=== PATIENT | male | born 1935 | race Caucasian/White ===

== ENCOUNTER 2021-01-27 11:24 | Inpatient (IN) | payer BC, OTHER, SELFPAY ==
[~2021-01-27] VITALS: Ht 188 cm; Wt 77.1 kg
[2021-01-28] VITALS (7 sets, daily range): BP systolic 99–157
[2021-01-28] MEDS ORDERED: DILT30TA36 IVP (00:23)
[2021-01-28] MEDS ORDERED: HYDR-3917 PO (00:23)
[2021-01-28] MEDS ORDERED: NALO0.4V2 IVP (00:23)
[2021-01-28] MEDS ORDERED: ACET325T PO (00:23)
[2021-01-28] MEDS ORDERED: ALPR0.255 PO ×2 (00:23→01:14)
[2021-01-28] MEDS ORDERED: IPRA3AMP9 INH ×2 (00:23→01:14)
[2021-01-28] MEDS ORDERED: DIPH-934 PO (01:14)
[2021-01-28] MEDS ORDERED: ONDA4AMP IVP (01:14)
[2021-01-28] MEDS ORDERED: BISA5TAB10 PO (01:14)
[2021-01-28] MEDS ORDERED: NITSL SL (01:14)
[2021-01-28] MEDS ORDERED: MOM PO (01:14)
[2021-01-28] MEDS ORDERED: ENAL10TA19 PO (01:14)
[2021-01-28] MEDS ORDERED: OXYM30MI NS (01:14)
[2021-01-28] MEDS ORDERED: DOXA4TAB2 PO (01:14)
[2021-01-28] MEDS ORDERED: DILT240C91 PO (01:14)
[2021-01-28] MEDS ORDERED: LABE25SY IVP (01:14)
[2021-01-28] MEDS ORDERED: MORP10SO IVP (01:14)
[2021-01-28] MEDS ORDERED: FINA5TAB3 PO (01:14)
[2021-01-28] MEDS ORDERED: ASPI-858 PO (01:14)
[2021-01-28] MEDS ORDERED: AMIO200T66 PO (01:14)
[2021-01-28] MEDS ORDERED: LEVO88TA2 PO (01:14)
[2021-01-28] MEDS ORDERED: LACT10SO7 PO (01:14)
[2021-01-28] MEDS ORDERED: ALLO100T PO (01:14)
[2021-01-28] MEDS ORDERED: ALPRAZolam 0.25 MG TABLET PO PRN (01:15)
[2021-01-28] MEDS ORDERED: IPRATROPIUM/ALBUTEROL SULFATE 3 ML AMPUL.NEB (DUONEB) INH PRN (01:15)
[2021-01-28] MEDS ORDERED: HYDROcodone/ACETAMIN 5-325 MG TAB (NORCO/ VICODIN) PO PRN (01:15)
[2021-01-28] MEDS ORDERED: NALOXONE HCL 0.4 MG/ML AMP (NARCAN) IVP PRN (01:15)
[2021-01-28] MEDS ORDERED: MILK OF MAGNESIA 30 ML UDC PO PRN (01:15)
[2021-01-28] MEDS ORDERED: NITROGLYCERIN 0.4 MG TAB.SUBL SL PRN (01:15)
[2021-01-28] MEDS: IPRATROPIUM/ALBUTEROL SULFATE 3 ML AMPUL.NEB (DUONEB) INH SCH ×6 (04:16→23:00)
[2021-01-28] MEDS ORDERED: MORPHINE 4 MG INJ. 4 MG/ML VIAL IVP PRN (04:45)
[2021-01-28] MEDS ORDERED: dilTIAZem HCL IVP 5 MG/ML VIAL IVP PRN (04:45)
[2021-01-28] MEDS: LEVOTHYROXINE SODIUM 0.088 MG TABLET PO SCH (06:04)
[2021-01-28 08:14] LABS: BASOPHILS # (AUTO) 0.1 K/uL (0.0-0.2); BASOPHILS % (AUTO) 3.8 % (0.0-2.0); EOSINOPHILS # (AUTO) 0.2 K/uL (0.0-0.4); EOSINOPHILS % (AUTO) 6.3 % (0.0-4.0); HEMATOCRIT 34.9 % (36-54); HEMOGLOBIN 11.5 g/dL (14.0-18.0); LYMPHOCYTES # (AUTO) 0.4 K/uL (1.0-5.5); LYMPHOCYTES % (AUTO) 13.7 % (20.5-51.5); MEAN CORPUSCULAR HEMOGLOBIN 31 pg (27-31); MEAN CORPUSCULAR HGB CONC 33 % (32-36); MEAN CORPUSCULAR VOLUME 94 fL (79.0-98.0); MONOCYTES # (AUTO) 0.3 K/uL (0.0-1.0); MONOCYTES % (AUTO) 9.3 % (1.7-9.3); NEUTROPHILS # (AUTO) 1.9 K/uL (1.8-7.7); NEUTROPHILS % (AUTO) 66.9 % (40.0-70.0); PLATELET COUNT (AUTO) 126 K/uL (130-430); RED BLOOD CELL COUNT(AUTO) 3.72 MIL/uL (4.2-6.2); RED CELL DISTRIBUTION WIDTH 15.1 % (9.0-15.0); WHITE BLOOD COUNT (AUTO) 2.9 K/uL (4.8-10.8)
[2021-01-28 08:38] LABS: ANION GAP 6 (5-15); CALCIUM 8.9 mg/dL (8.4-11.0); CHLORIDE 106 mmol/L (98-107); CREATININE 0.99 mg/dL (0.55-1.30); GLUCOSE 90 mg/dL (70-99); POTASSIUM 4.3 mmol/L (3.5-5.1); SODIUM SERUM 141 mmol/L (136-145); UREA NITROGEN, BLOOD 27 mg/dL (8-21)
[2021-01-28] MEDS: D5/0.45 NS 1,000 ML IV SCH ×2 (11:40→21:15)
[2021-01-28] MEDS: AMIODARONE HCL 200 MG TABLET PO SCH (11:58)
[2021-01-28] MEDS: BISACODYL 5 MG TABLET.DR (DULCOLAX) PO SCH (11:58)
[2021-01-28] MEDS: ALLOPURINOL 100 MG TABLET (ZYLOPRIM) PO SCH ×2 (11:58→11:59)
[2021-01-28] MEDS ORDERED: DOXAZOSIN MESYLATE 2 MG TABLET PO SCH (21:00)
[2021-01-28] MEDS ORDERED: DILTIAZEM HCL 240 MG CAP.SR.24H PO SCH (21:00)
[2021-01-28] MEDS: ALPRAZolam 0.25 MG TABLET PO PRN (21:51)
[2021-01-28] MEDS: FINASTERIDE 5 MG TABLET (PROSCAR) PO SCH (21:53)
[2021-01-28] MEDS: lisinopriL 20 MG TABLET PO SCH (21:53)
[2021-01-28] MEDS: ASPIRIN 81 MG TAB.CHEW PO SCH (21:53)
[2021-01-29 00:40] VITALS: BP_SYST 90
[2021-01-29] MEDS: IPRATROPIUM/ALBUTEROL SULFATE 3 ML AMPUL.NEB (DUONEB) INH SCH ×5 (03:00→21:40)
[2021-01-29] MEDS: D5/0.45 NS 1,000 ML IV SCH ×2 (05:49→16:49)
[2021-01-29] MEDS: LEVOTHYROXINE SODIUM 0.088 MG TABLET PO SCH (06:46)
[2021-01-29 07:45] LABS: PROTHROMBIN TIME 11.1 SECS (9.5-12.5)
[2021-01-29] MEDS ORDERED: DIATR MEGLU/DIATRIZ SOD 30 ML SOLUTION PO ONE (07:46)
[2021-01-29 08:00] VITALS: BP_SYST 111
[2021-01-29] MEDS: BISACODYL 5 MG TABLET.DR (DULCOLAX) PO SCH (09:00)
[2021-01-29] MEDS: AMIODARONE HCL 200 MG TABLET PO SCH (09:00)
[2021-01-29] MEDS: ALLOPURINOL 100 MG TABLET (ZYLOPRIM) PO SCH ×2 (09:21→21:00)
[2021-01-29] MEDS ORDERED: DEXAMETHASONE SOD PHOSPHATE 4 MG/ML VIAL IVP ONE (11:30)
[2021-01-29] MEDS ORDERED: DIPHENHYDRAMINE INJ 50 MG/ML VIAL IVP ONE (11:30)
[2021-01-29 12:00] VITALS: BP_SYST 121
[2021-01-29 16:00] VITALS: BP_SYST 113
[2021-01-29 19:00] VITALS: BP_SYST 105
[2021-01-29 20:00] VITALS: BP_SYST 105
[2021-01-29] MEDS: ASPIRIN 81 MG TAB.CHEW PO SCH (20:57)
[2021-01-29] MEDS: DILTIAZEM HCL 120 MG CAP.SR.24H PO SCH (20:58)
[2021-01-29] MEDS: lisinopriL 20 MG TABLET PO SCH (21:00)
[2021-01-29] MEDS: FINASTERIDE 5 MG TABLET (PROSCAR) PO SCH (21:00)
[2021-01-30 00:27] VITALS: BP_SYST 121
[2021-01-30] MEDS: IPRATROPIUM/ALBUTEROL SULFATE 3 ML AMPUL.NEB (DUONEB) INH SCH ×7 (00:42→23:15)
[2021-01-30] MEDS: LEVOTHYROXINE SODIUM 0.088 MG TABLET PO SCH (05:33)
[2021-01-30] MEDS: D5/0.45 NS 1,000 ML IV SCH ×3 (05:33→23:28)
[2021-01-30 06:10] LABS: BASOPHILS % (AUTO) 0.5 % (0.0-2.0); EOSINOPHILS % (AUTO) 0.1 % (0.0-4.0); HEMATOCRIT 34.5 % (36-54); HEMOGLOBIN 11.5 g/dL (14.0-18.0); LYMPHOCYTES # (AUTO) 0.2 K/uL (1.0-5.5); LYMPHOCYTES % (AUTO) 3.1 % (20.5-51.5); MEAN CORPUSCULAR HEMOGLOBIN 31 pg (27-31); MEAN CORPUSCULAR HGB CONC 33 % (32-36); MEAN CORPUSCULAR VOLUME 94 fL (79.0-98.0); MONOCYTES # (AUTO) 0.1 K/uL (0.0-1.0); MONOCYTES % (AUTO) 2.2 % (1.7-9.3); NEUTROPHILS % (AUTO) 94.1 % (40.0-70.0); PLATELET COUNT (AUTO) 131 K/uL (130-430); RED BLOOD CELL COUNT(AUTO) 3.67 MIL/uL (4.2-6.2); RED CELL DISTRIBUTION WIDTH 15.1 % (9.0-15.0); WHITE BLOOD COUNT (AUTO) 5.4 K/uL (4.8-10.8)
[2021-01-30 07:35] VITALS: BP_SYST 140
[2021-01-30 07:43] LABS: BILIRUBIN,URINE NEGATIVE (NEGATIVE); CLARITY/URINE CLEAR (CLEAR); COLOR,URINE YELLOW (YELLOW); GLUCOSE,URINE NEGATIVE (NEGATIVE); KETONES,URINE TRACE (NEGATIVE); LEUKOCYTE ESTERASE ,URINE NEGATIVE (NEGATIVE); NITRITE, URINE NEGATIVE (NEGATIVE); PROTEIN URINE NEGATIVE (NEGATIVE); UROBILINOGEN,URINE 0.2 (0.2-1.0)
[2021-01-30 08:25] LABS: BLOOD, URINE NEGATIVE (NEGATIVE)
[2021-01-30] MEDS: ALLOPURINOL 100 MG TABLET (ZYLOPRIM) PO SCH ×2 (08:54→20:27)
[2021-01-30] MEDS: AMIODARONE HCL 200 MG TABLET PO SCH (08:54)
[2021-01-30] MEDS: BISACODYL 5 MG TABLET.DR (DULCOLAX) PO SCH (08:54)
[2021-01-30 11:51] LABS: TOTAL IRON BIND. CAPACITY 209 ug/dL (250-450)
[2021-01-30 13:22] LABS: ANION GAP 11 (5-15); CALCIUM 8.4 mg/dL (8.4-11.0); CHLORIDE 105 mmol/L (98-107); GLUCOSE 154 mg/dL (70-99); POTASSIUM 4.5 mmol/L (3.5-5.1); SODIUM SERUM 137 mmol/L (136-145); UREA NITROGEN, BLOOD 43 mg/dL (8-21)
[2021-01-30 13:23] LABS: ALANINE AMINOTRANSFERASE 25 U/L (12-78); ALBUMIN 2.9 g/dL (3.4-4.8); ASPARTATE AMINOTRANSFERASE 26 U/L (10-37); CREATININE 1.62 mg/dL (0.55-1.30); TOTAL BILIRUBIN 0.2 mg/dL (0.0-1.0)
[2021-01-30 16:22] VITALS: BP_SYST 138
[2021-01-30] MEDS: DILTIAZEM HCL 120 MG CAP.SR.24H PO SCH (20:27)
[2021-01-30] MEDS: FINASTERIDE 5 MG TABLET (PROSCAR) PO SCH (20:27)
[2021-01-30] MEDS: ASPIRIN 81 MG TAB.CHEW PO SCH (20:27)
[2021-01-30] MEDS: lisinopriL 20 MG TABLET PO SCH (20:28)
[2021-01-30 20:30] VITALS: BP_SYST 116
[2021-01-31] MEDS: ALPRAZolam 0.25 MG TABLET PO PRN (00:31)
[2021-01-31 01:56] VITALS: BP_SYST 119
[2021-01-31] MEDS: LEVOTHYROXINE SODIUM 0.088 MG TABLET PO SCH (07:04)
[2021-01-31 07:06] LABS: FOLATE (FOLIC ACID) 11.3 ng/mL (>3.0)
[2021-01-31] MEDS: IPRATROPIUM/ALBUTEROL SULFATE 3 ML AMPUL.NEB (DUONEB) INH SCH ×5 (07:13→23:00)
[2021-01-31 07:33] VITALS: BP_SYST 119
[2021-01-31] MEDS: BISACODYL 5 MG TABLET.DR (DULCOLAX) PO SCH (09:35)
[2021-01-31] MEDS: ALLOPURINOL 100 MG TABLET (ZYLOPRIM) PO SCH ×2 (09:36→20:54)
[2021-01-31] MEDS: AMIODARONE HCL 200 MG TABLET PO SCH (09:36)
[2021-01-31] MEDS: NACL 0.9% 1,000 ML IV SCH ×2 (09:40→21:07)
[2021-01-31 17:32] VITALS: BP_SYST 122
[2021-01-31 20:00] VITALS: BP_SYST 129
[2021-01-31] MEDS: ASPIRIN 81 MG TAB.CHEW PO SCH (20:53)
[2021-01-31] MEDS: FINASTERIDE 5 MG TABLET (PROSCAR) PO SCH (20:54)
[2021-01-31] MEDS: DILTIAZEM HCL 120 MG CAP.SR.24H PO SCH (20:54)
[2021-01-31] MEDS: lisinopriL 20 MG TABLET PO SCH (20:54)
[2021-02-01 01:29] VITALS: BP_SYST 180
[2021-02-01] MEDS: IPRATROPIUM/ALBUTEROL SULFATE 3 ML AMPUL.NEB (DUONEB) INH SCH ×6 (03:00→23:00)
[2021-02-01] MEDS: NACL 0.9% 1,000 ML IV SCH ×3 (04:30→23:43)
[2021-02-01] MEDS: LEVOTHYROXINE SODIUM 0.088 MG TABLET PO SCH (06:39)
[2021-02-01 07:46] LABS: BASOPHILS # (AUTO) 0.1 K/uL (0.0-0.2); BASOPHILS % (AUTO) 1.2 % (0.0-2.0); EOSINOPHILS # (AUTO) 0.2 K/uL (0.0-0.4); EOSINOPHILS % (AUTO) 4.1 % (0.0-4.0); HEMATOCRIT 32.3 % (36-54); HEMOGLOBIN 10.5 g/dL (14.0-18.0); LYMPHOCYTES # (AUTO) 0.7 K/uL (1.0-5.5); LYMPHOCYTES % (AUTO) 13.5 % (20.5-51.5); MEAN CORPUSCULAR HEMOGLOBIN 31 pg (27-31); MEAN CORPUSCULAR HGB CONC 33 % (32-36); MEAN CORPUSCULAR VOLUME 96 fL (79.0-98.0); MONOCYTES # (AUTO) 0.5 K/uL (0.0-1.0); MONOCYTES % (AUTO) 9.3 % (1.7-9.3); NEUTROPHILS # (AUTO) 3.8 K/uL (1.8-7.7); NEUTROPHILS % (AUTO) 71.9 % (40.0-70.0); PLATELET COUNT (AUTO) 122 K/uL (130-430); RED BLOOD CELL COUNT(AUTO) 3.35 MIL/uL (4.2-6.2); RED CELL DISTRIBUTION WIDTH 16.2 % (9.0-15.0); WHITE BLOOD COUNT (AUTO) 5.2 K/uL (4.8-10.8)
[2021-02-01 08:10] VITALS: BP_SYST 132
[2021-02-01 08:58] LABS: ALANINE AMINOTRANSFERASE 25 U/L (12-78); ALBUMIN 2.4 g/dL (3.4-4.8); ANION GAP 6 (5-15); ASPARTATE AMINOTRANSFERASE 33 U/L (10-37); CALCIUM 8.3 mg/dL (8.4-11.0); CHLORIDE 109 mmol/L (98-107); GLUCOSE 86 mg/dL (70-99); POTASSIUM 5.6 mmol/L (3.5-5.1); SODIUM SERUM 137 mmol/L (136-145); TOTAL BILIRUBIN 0.4 mg/dL (0.0-1.0); UREA NITROGEN, BLOOD 41 mg/dL (8-21)
[2021-02-01] MEDS: ALLOPURINOL 100 MG TABLET (ZYLOPRIM) PO SCH ×2 (10:31→20:41)
[2021-02-01] MEDS: BISACODYL 5 MG TABLET.DR (DULCOLAX) PO SCH (10:31)
[2021-02-01] MEDS: AMIODARONE HCL 200 MG TABLET PO SCH (10:35)
[2021-02-01 12:52] VITALS: BP_SYST 114
[2021-02-01 17:25] VITALS: BP_SYST 154
[2021-02-01 19:00] VITALS: BP_SYST 128
[2021-02-01 20:00] VITALS: BP_SYST 128
[2021-02-01] MEDS: ASPIRIN 81 MG TAB.CHEW PO SCH (20:38)
[2021-02-01] MEDS: DILTIAZEM HCL 120 MG CAP.SR.24H PO SCH (20:40)
[2021-02-01] MEDS: FINASTERIDE 5 MG TABLET (PROSCAR) PO SCH (20:40)
[2021-02-01] MEDS: lisinopriL 20 MG TABLET PO SCH (20:40)
[2021-02-01] MEDS: ALPRAZolam 0.25 MG TABLET PO PRN (23:41)
[2021-02-02] VITALS: BP_SYST 137
[2021-02-02] MEDS: LEVOTHYROXINE SODIUM 0.088 MG TABLET PO SCH (06:44)
[2021-02-02 08:00] VITALS: BP_SYST 150
[2021-02-02] MEDS ORDERED: fentaNYL CITRATE/PF 100 MCG/2 ML AMP ONE (08:57)
[2021-02-02] MEDS: ALLOPURINOL 100 MG TABLET (ZYLOPRIM) PO SCH ×2 (09:00→21:04)
[2021-02-02] MEDS: BISACODYL 5 MG TABLET.DR (DULCOLAX) PO SCH (09:00)
[2021-02-02] MEDS ORDERED: LIDOCAINE 1%, 20 ML MDV 60 ML ONE (09:05)
[2021-02-02 09:11] LABS: ANION GAP 5 (5-15); CALCIUM 8.8 mg/dL (8.4-11.0); CHLORIDE 108 mmol/L (98-107); CREATININE 1.07 mg/dL (0.55-1.30); GLUCOSE 88 mg/dL (70-99); POTASSIUM 5.4 mmol/L (3.5-5.1); SODIUM SERUM 138 mmol/L (136-145); UREA NITROGEN, BLOOD 27 mg/dL (8-21)
[2021-02-02 09:16] LABS: ALANINE AMINOTRANSFERASE 22 U/L (12-78); ALBUMIN 2.5 g/dL (3.4-4.8); ASPARTATE AMINOTRANSFERASE 23 U/L (10-37); TOTAL BILIRUBIN 0.6 mg/dL (0.0-1.0)
[2021-02-02] MEDS ORDERED: fentaNYL CITRATE/PF 100 MCG/2 ML AMP IVP ONE ×2 (09:39→12:30)
[2021-02-02] MEDS: IPRATROPIUM/ALBUTEROL SULFATE 3 ML AMPUL.NEB (DUONEB) INH SCH ×5 (10:00→23:00)
[2021-02-02] MEDS: NACL 0.9% 1,000 ML IV SCH ×2 (12:30→21:05)
[2021-02-02 13:17] VITALS: BP_SYST 150
[2021-02-02] MEDS: AMIODARONE HCL 200 MG TABLET PO SCH (13:26)
[2021-02-02 16:14] VITALS: BP_SYST 135
[2021-02-02] MEDS: ALPRAZolam 0.25 MG TABLET PO PRN (18:44)
[2021-02-02 19:00] VITALS: BP_SYST 145
[2021-02-02 20:00] VITALS: BP_SYST 147
[2021-02-02] MEDS: ACETAMINOPHEN 325 MG TABLET PO PRN (21:02)
[2021-02-02] MEDS: DILTIAZEM HCL 120 MG CAP.SR.24H PO SCH (21:03)
[2021-02-02] MEDS: lisinopriL 20 MG TABLET PO SCH (21:04)
[2021-02-02] MEDS: FINASTERIDE 5 MG TABLET (PROSCAR) PO SCH (21:04)
[2021-02-02] MEDS: ASPIRIN 81 MG TAB.CHEW PO SCH (21:04)
[2021-02-03] VITALS (7 sets, daily range): BP systolic 131–141
[2021-02-03] MEDS: IPRATROPIUM/ALBUTEROL SULFATE 3 ML AMPUL.NEB (DUONEB) INH SCH ×6 (03:00→23:20)
[2021-02-03] MEDS: LEVOTHYROXINE SODIUM 0.088 MG TABLET PO SCH (06:28)
[2021-02-03] MEDS: NACL 0.9% 1,000 ML IV SCH ×2 (06:29→16:36)
[2021-02-03] MEDS: AMIODARONE HCL 200 MG TABLET PO SCH (08:29)
[2021-02-03] MEDS: ALLOPURINOL 100 MG TABLET (ZYLOPRIM) PO SCH ×2 (08:29→21:07)
[2021-02-03] MEDS: BISACODYL 5 MG TABLET.DR (DULCOLAX) PO SCH (08:29)
[2021-02-03] MEDS: ASPIRIN 81 MG TAB.CHEW PO SCH (21:03)
[2021-02-03] MEDS: DILTIAZEM HCL 120 MG CAP.SR.24H PO SCH (21:04)
[2021-02-03] MEDS: FINASTERIDE 5 MG TABLET (PROSCAR) PO SCH (21:06)
[2021-02-03] MEDS: ALPRAZolam 0.25 MG TABLET PO PRN (21:06)
[2021-02-03] MEDS: lisinopriL 20 MG TABLET PO SCH (21:07)
[2021-02-03] MEDS: ACETAMINOPHEN 325 MG TABLET PO PRN (21:08)
[2021-02-04 00:19] VITALS: BP_SYST 119
[2021-02-04] MEDS: NACL 0.9% 1,000 ML IV SCH ×2 (02:33→16:04)
[2021-02-04] MEDS: IPRATROPIUM/ALBUTEROL SULFATE 3 ML AMPUL.NEB (DUONEB) INH SCH ×6 (03:00→22:55)
[2021-02-04] MEDS: LEVOTHYROXINE SODIUM 0.088 MG TABLET PO SCH (06:11)
[2021-02-04 06:34] LABS: BASOPHILS % (AUTO) 1.1 % (0.0-2.0); EOSINOPHILS # (AUTO) 0.3 K/uL (0.0-0.4); EOSINOPHILS % (AUTO) 7.4 % (0.0-4.0); HEMATOCRIT 28.6 % (36-54); HEMOGLOBIN 9.6 g/dL (14.0-18.0); LYMPHOCYTES # (AUTO) 0.5 K/uL (1.0-5.5); LYMPHOCYTES % (AUTO) 11.8 % (20.5-51.5); MEAN CORPUSCULAR HEMOGLOBIN 31 pg (27-31); MEAN CORPUSCULAR HGB CONC 34 % (32-36); MEAN CORPUSCULAR VOLUME 93 fL (79.0-98.0); MONOCYTES # (AUTO) 0.5 K/uL (0.0-1.0); MONOCYTES % (AUTO) 12.7 % (1.7-9.3); NEUTROPHILS # (AUTO) 2.7 K/uL (1.8-7.7); PLATELET COUNT (AUTO) 102 K/uL (130-430); RED BLOOD CELL COUNT(AUTO) 3.08 MIL/uL (4.2-6.2); RED CELL DISTRIBUTION WIDTH 14.9 % (9.0-15.0)
[2021-02-04 07:34] LABS: ALANINE AMINOTRANSFERASE 17 U/L (12-78); ALBUMIN 2.2 g/dL (3.4-4.8); ANION GAP 5 (5-15); ASPARTATE AMINOTRANSFERASE 21 U/L (10-37); CALCIUM 8.2 mg/dL (8.4-11.0); CHLORIDE 109 mmol/L (98-107); CREATININE 0.96 mg/dL (0.55-1.30); GLUCOSE 84 mg/dL (70-99); SODIUM SERUM 140 mmol/L (136-145); TOTAL BILIRUBIN 0.6 mg/dL (0.0-1.0); UREA NITROGEN, BLOOD 19 mg/dL (8-21)
[2021-02-04 07:51] VITALS: BP_SYST 121
[2021-02-04] MEDS: BISACODYL 5 MG TABLET.DR (DULCOLAX) PO SCH (09:41)
[2021-02-04] MEDS: AMIODARONE HCL 200 MG TABLET PO SCH (09:42)
[2021-02-04] MEDS: ALLOPURINOL 100 MG TABLET (ZYLOPRIM) PO SCH ×2 (09:42→22:21)
[2021-02-04 12:38] VITALS: BP_SYST 135
[2021-02-04 16:20] VITALS: BP_SYST 130
[2021-02-04 19:00] VITALS: BP_SYST 138
[2021-02-04] MEDS: DILTIAZEM HCL 120 MG CAP.SR.24H PO SCH (21:00)
[2021-02-04] MEDS: ASPIRIN 81 MG TAB.CHEW PO SCH (22:19)
[2021-02-04] MEDS: FINASTERIDE 5 MG TABLET (PROSCAR) PO SCH (22:21)
[2021-02-04] MEDS: ACETAMINOPHEN 325 MG TABLET PO PRN (22:21)
[2021-02-04] MEDS: lisinopriL 20 MG TABLET PO SCH (22:22)
[2021-02-05 01:39] VITALS: BP_SYST 132
[2021-02-05] MEDS: IPRATROPIUM/ALBUTEROL SULFATE 3 ML AMPUL.NEB (DUONEB) INH SCH ×6 (03:35→22:42)
[2021-02-05 04:00] VITALS: BP_SYST 128
[2021-02-05] MEDS: NACL 0.9% 1,000 ML IV SCH ×3 (05:34→20:34)
[2021-02-05] MEDS ORDERED: IPRATROPIUM/ALBUTEROL SULFATE 3 ML AMPUL.NEB (DUONEB) ONE (07:53)
[2021-02-05 08:00] VITALS: BP_SYST 165
[2021-02-05] MEDS: BISACODYL 5 MG TABLET.DR (DULCOLAX) PO SCH ×2 (08:28→08:38)
[2021-02-05] MEDS: ALLOPURINOL 100 MG TABLET (ZYLOPRIM) PO SCH ×2 (08:28→21:15)
[2021-02-05] MEDS: LEVOTHYROXINE SODIUM 0.088 MG TABLET PO SCH (08:28)
[2021-02-05] MEDS: AMIODARONE HCL 200 MG TABLET PO SCH (08:28)
[2021-02-05 12:37] VITALS: BP_SYST 138
[2021-02-05 16:14] VITALS: BP_SYST 151
[2021-02-05] MEDS: ALPRAZolam 0.25 MG TABLET PO PRN ×2 (18:05→23:19)
[2021-02-05] MEDS: FINASTERIDE 5 MG TABLET (PROSCAR) PO SCH (21:00)
[2021-02-05] MEDS: ASPIRIN 81 MG TAB.CHEW PO SCH (21:15)
[2021-02-05] MEDS: lisinopriL 20 MG TABLET PO SCH (21:16)
[2021-02-05] MEDS: DILTIAZEM HCL 120 MG CAP.SR.24H PO SCH (21:16)
[2021-02-05] MEDS: DIPHENHYDRAMINE HCL 12.5 MG/5 ML UDC PO PRN (23:20)
[2021-02-06] VITALS (7 sets, daily range): BP systolic 132–147
[2021-02-06] MEDS: IPRATROPIUM/ALBUTEROL SULFATE 3 ML AMPUL.NEB (DUONEB) INH SCH ×6 (02:34→23:01)
[2021-02-06] MEDS: NACL 0.9% 1,000 ML IV SCH ×2 (04:30→14:19)
[2021-02-06] MEDS: LEVOTHYROXINE SODIUM 0.088 MG TABLET PO SCH (07:54)
[2021-02-06] MEDS: BISACODYL 5 MG TABLET.DR (DULCOLAX) PO SCH (09:00)
[2021-02-06] MEDS: ALLOPURINOL 100 MG TABLET (ZYLOPRIM) PO SCH ×2 (09:20→22:56)
[2021-02-06] MEDS: AMIODARONE HCL 200 MG TABLET PO SCH (09:21)
[2021-02-06] MEDS ORDERED: guaiFENesin 200 MG/CODEINE 20 MG/ 10 ML UDC PO PRN (15:15)
[2021-02-06] MEDS ORDERED: COMMUNICATION ORDER XX ONE (16:45)
[2021-02-06] MEDS ORDERED: DEXAMETHASONE SOD PHOSPHATE 4 MG/ML VIAL IVP ONE (18:00)
[2021-02-06] MEDS ORDERED: DIPHENHYDRAMINE INJ 50 MG/ML VIAL IVP ONE (18:00)
[2021-02-06] MEDS: FINASTERIDE 5 MG TABLET (PROSCAR) PO SCH (22:55)
[2021-02-06] MEDS: DILTIAZEM HCL 120 MG CAP.SR.24H PO SCH (22:55)
[2021-02-06] MEDS: lisinopriL 20 MG TABLET PO SCH (22:56)
[2021-02-07] VITALS: BP_SYST 132
[2021-02-07] MEDS: NACL 0.9% 1,000 ML IV SCH ×3 (00:04→21:18)
[2021-02-07] MEDS: IPRATROPIUM/ALBUTEROL SULFATE 3 ML AMPUL.NEB (DUONEB) INH SCH ×6 (03:27→23:01)
[2021-02-07 04:00] VITALS: BP_SYST 136
[2021-02-07] MEDS: LEVOTHYROXINE SODIUM 0.088 MG TABLET PO SCH (07:08)
[2021-02-07] MEDS ORDERED: FUROSEMIDE 40 MG/4 ML VIAL IVP ONE (07:15)
[2021-02-07 09:00] VITALS: BP_SYST 122
[2021-02-07] MEDS: ALLOPURINOL 100 MG TABLET (ZYLOPRIM) PO SCH ×2 (09:33→21:20)
[2021-02-07] MEDS: BISACODYL 5 MG TABLET.DR (DULCOLAX) PO SCH (09:34)
[2021-02-07] MEDS: AMIODARONE HCL 200 MG TABLET PO SCH (09:34)
[2021-02-07 12:01] VITALS: BP_SYST 119
[2021-02-07 16:01] VITALS: BP_SYST 120
[2021-02-07 20:00] VITALS: BP_SYST 112
[2021-02-07] MEDS: FINASTERIDE 5 MG TABLET (PROSCAR) PO SCH (21:20)
[2021-02-07] MEDS: lisinopriL 20 MG TABLET PO SCH (21:20)
[2021-02-07] MEDS: DIPHENHYDRAMINE HCL 12.5 MG/5 ML UDC PO PRN (21:21)
[2021-02-07] MEDS: DILTIAZEM HCL 120 MG CAP.SR.24H PO SCH (21:21)
[2021-02-07] MEDS: ACETAMINOPHEN 325 MG TABLET PO PRN (21:33)
[2021-02-08] VITALS (13 sets, daily range): BP systolic 120–179
[2021-02-08] MEDS ORDERED: SUCCINYLCHOLINE CHLORIDE 20 MG/ML(QUELICIN) IVP ONE
[2021-02-08] MEDS: IPRATROPIUM/ALBUTEROL SULFATE 3 ML AMPUL.NEB (DUONEB) INH SCH ×6 (03:09→23:10)
[2021-02-08] MEDS: NACL 0.9% 1,000 ML IV SCH (06:24)
[2021-02-08] MEDS: LEVOTHYROXINE SODIUM 0.088 MG TABLET PO SCH (07:00)
[2021-02-08 07:40] LABS: BASOPHILS % (AUTO) 0.3 % (0.0-2.0); HEMATOCRIT 29.8 % (36-54); HEMOGLOBIN 9.8 g/dL (14.0-18.0); LYMPHOCYTES # (AUTO) 0.2 K/uL (1.0-5.5); LYMPHOCYTES % (AUTO) 1.7 % (20.5-51.5); MEAN CORPUSCULAR HEMOGLOBIN 31 pg (27-31); MEAN CORPUSCULAR HGB CONC 33 % (32-36); MEAN CORPUSCULAR VOLUME 94 fL (79.0-98.0); MONOCYTES # (AUTO) 0.5 K/uL (0.0-1.0); MONOCYTES % (AUTO) 5.4 % (1.7-9.3); NEUTROPHILS # (AUTO) 8.8 K/uL (1.8-7.7); NEUTROPHILS % (AUTO) 92.6 % (40.0-70.0); PLATELET COUNT (AUTO) 110 K/uL (130-430); RED BLOOD CELL COUNT(AUTO) 3.19 MIL/uL (4.2-6.2); RED CELL DISTRIBUTION WIDTH 15.7 % (9.0-15.0); WHITE BLOOD COUNT (AUTO) 9.4 K/uL (4.8-10.8)
[2021-02-08 08:06] LABS: ANION GAP 9 (5-15); CALCIUM 8.3 mg/dL (8.4-11.0); CHLORIDE 106 mmol/L (98-107); CREATININE 1.15 mg/dL (0.55-1.30); GLUCOSE 127 mg/dL (70-99); POTASSIUM 4.4 mmol/L (3.5-5.1); SODIUM SERUM 137 mmol/L (136-145); UREA NITROGEN, BLOOD 27 mg/dL (8-21)
[2021-02-08] MEDS: AMIODARONE HCL 200 MG TABLET PO SCH (08:46)
[2021-02-08] MEDS: ALLOPURINOL 100 MG TABLET (ZYLOPRIM) PO SCH ×2 (08:47→21:00)
[2021-02-08] MEDS: BISACODYL 5 MG TABLET.DR (DULCOLAX) PO SCH (08:47)
[2021-02-08] MEDS ORDERED: SEVOFLURANE 15 MIN GAS INH ONE (09:13)
[2021-02-08] MEDS ORDERED: WATER FOR IRRIGATION,STERILE 1,000 ML IRRIG.SOLN IR ONE (09:13)
[2021-02-08] MEDS ORDERED: ETOMIDATE 20 MG/ 10 ML VIAL (AMIDATE) IVP ONE ×2 (09:13)
[2021-02-08] MEDS ORDERED: BUPIVACAINE /EPINEPHRINE/PF 0.25% 30 ML VIAL INJ ONE (09:13)
[2021-02-08] MEDS ORDERED: NS 1000 ML IV.SOLN IV ONE (09:13)
[2021-02-08] MEDS ORDERED: ROCURONIUM BROMIDE 10 MG/ML (ZEMURON) IV ONE (09:13)
[2021-02-08] MEDS ORDERED: HYDROmorphone 2 MG/ML VIAL IVP ONE (09:13)
[2021-02-08] MEDS ORDERED: CEFAZOLIN 2 GM IVPB PREMIX 50 ML IV ONE (09:13)
[2021-02-08] MEDS ORDERED: NS IRRIG SOLN 1000 ML IR ONE (09:13)
[2021-02-08] MEDS ORDERED: SUGAMMADEX SODIUM 200 MG/2 ML VIAL IV ONE (09:13)
[2021-02-08] MEDS ORDERED: PROPOFOL 200MG/ 20ML VIAL (DIPRIVAN) IV ONE (09:13)
[2021-02-08] MEDS ORDERED: METHYLERGONOVINE MALEATE 0.2 MG/ML AMP ONE (11:08)
[2021-02-08] MEDS ORDERED: HYDROcodone/ACETAMIN 10-325 MG TAB PO PRN (13:00)
[2021-02-08 13:17] LABS: BASOPHILS % (AUTO) 0.3 % (0.0-2.0); HEMATOCRIT 28.5 % (36-54); HEMOGLOBIN 9.4 g/dL (14.0-18.0); LYMPHOCYTES # (AUTO) 0.1 K/uL (1.0-5.5); MEAN CORPUSCULAR HEMOGLOBIN 31 pg (27-31); MEAN CORPUSCULAR HGB CONC 33 % (32-36); MEAN CORPUSCULAR VOLUME 93 fL (79.0-98.0); MONOCYTES # (AUTO) 0.7 K/uL (0.0-1.0); MONOCYTES % (AUTO) 5.6 % (1.7-9.3); NEUTROPHILS # (AUTO) 11.2 K/uL (1.8-7.7); NEUTROPHILS % (AUTO) 93.1 % (40.0-70.0); PLATELET COUNT (AUTO) 137 K/uL (130-430); RED BLOOD CELL COUNT(AUTO) 3.06 MIL/uL (4.2-6.2); RED CELL DISTRIBUTION WIDTH 15.6 % (9.0-15.0); WHITE BLOOD COUNT (AUTO) 12.1 K/uL (4.8-10.8)
[2021-02-08 13:36] LABS: ANION GAP 5 (5-15); CALCIUM 7.9 mg/dL (8.4-11.0); CHLORIDE 106 mmol/L (98-107); CREATININE 1.15 mg/dL (0.55-1.30); GLUCOSE 146 mg/dL (70-99); POTASSIUM 4.2 mmol/L (3.5-5.1); SODIUM SERUM 136 mmol/L (136-145); UREA NITROGEN, BLOOD 26 mg/dL (8-21)
[2021-02-08] MEDS: KCL 20 mEq in D5/0.45NS 1000mL 1,000 ML IV SCH (16:40)
[2021-02-08] MEDS ORDERED: DIPHENHYDRAMINE INJ 50 MG/ML VIAL ONE (17:30)
[2021-02-08] MEDS: FINASTERIDE 5 MG TABLET (PROSCAR) PO SCH (21:00)
[2021-02-08] MEDS: DILTIAZEM HCL 120 MG CAP.SR.24H PO SCH (21:00)
[2021-02-08] MEDS: lisinopriL 20 MG TABLET PO SCH (21:00)
[2021-02-08] MEDS ORDERED: PROPOFOL DRIP 100 ML IV ONE (23:50)
[2021-02-09] VITALS (37 sets, daily range): BP systolic 84–173
[2021-02-09] MEDS ORDERED: KCL 20 mEq in D5/0.45NS 1000mL 1,000 ML IV ONE (03:10)
[2021-02-09] MEDS: IPRATROPIUM/ALBUTEROL SULFATE 3 ML AMPUL.NEB (DUONEB) INH SCH ×6 (03:15→23:43)
[2021-02-09] MEDS: KCL 20 mEq in D5/0.45NS 1000mL 1,000 ML IV SCH ×2 (03:33→19:39)
[2021-02-09] MEDS: PROPOFOL DRIP 100 ML IV PRN ×3 (03:37→19:39)
[2021-02-09 06:06] LABS: EOSINOPHILS % (AUTO) 0.1 % (0.0-4.0); HEMATOCRIT 27.3 % (36-54); LYMPHOCYTES # (AUTO) 0.2 K/uL (1.0-5.5); LYMPHOCYTES % (AUTO) 2.8 % (20.5-51.5); MEAN CORPUSCULAR HEMOGLOBIN 31 pg (27-31); MEAN CORPUSCULAR HGB CONC 33 % (32-36); MEAN CORPUSCULAR VOLUME 93 fL (79.0-98.0); MONOCYTES # (AUTO) 0.6 K/uL (0.0-1.0); MONOCYTES % (AUTO) 7.7 % (1.7-9.3); NEUTROPHILS # (AUTO) 7.1 K/uL (1.8-7.7); NEUTROPHILS % (AUTO) 89.4 % (40.0-70.0); PLATELET COUNT (AUTO) 109 K/uL (130-430); RED BLOOD CELL COUNT(AUTO) 2.93 MIL/uL (4.2-6.2); RED CELL DISTRIBUTION WIDTH 15.5 % (9.0-15.0); WHITE BLOOD COUNT (AUTO) 7.9 K/uL (4.8-10.8)
[2021-02-09] MEDS: LEVOTHYROXINE SODIUM 0.088 MG TABLET PO SCH (06:31)
[2021-02-09 06:36] LABS: ALANINE AMINOTRANSFERASE 15 U/L (12-78); ALBUMIN 1.8 g/dL (3.4-4.8); ANION GAP 8 (5-15); ASPARTATE AMINOTRANSFERASE 22 U/L (10-37); CALCIUM 7.5 mg/dL (8.4-11.0); CHLORIDE 105 mmol/L (98-107); CREATININE 1.01 mg/dL (0.55-1.30); GLUCOSE 124 mg/dL (70-99); SODIUM SERUM 135 mmol/L (136-145); TOTAL BILIRUBIN 0.4 mg/dL (0.0-1.0); UREA NITROGEN, BLOOD 26 mg/dL (8-21)
[2021-02-09 08:35] LABS: INR 1.1 (0.80-1.20); PROTHROMBIN TIME 11.6 SECS (9.5-12.5)
[2021-02-09] MEDS: BISACODYL 5 MG TABLET.DR (DULCOLAX) PO SCH (09:46)
[2021-02-09] MEDS: AMIODARONE HCL 200 MG TABLET PO SCH (09:47)
[2021-02-09] MEDS: ALLOPURINOL 100 MG TABLET (ZYLOPRIM) PO SCH ×2 (09:47→20:28)
[2021-02-09] MEDS: FINASTERIDE 5 MG TABLET (PROSCAR) PO SCH (20:27)
[2021-02-09] MEDS: DILTIAZEM HCL 120 MG CAP.SR.24H PO SCH (20:27)
[2021-02-09] MEDS: lisinopriL 20 MG TABLET PO SCH (20:28)
[2021-02-10] VITALS (18 sets, daily range): BP systolic 106–148
[2021-02-10] MEDS: PROPOFOL DRIP 100 ML IV PRN ×2 (00:13→06:08)
[2021-02-10] MEDS: KCL 20 mEq in D5/0.45NS 1000mL 1,000 ML IV SCH (06:05)
[2021-02-10] MEDS: LEVOTHYROXINE SODIUM 0.088 MG TABLET PO SCH (06:06)
[2021-02-10 06:24] LABS: BASOPHILS % (AUTO) 0.1 % (0.0-2.0); EOSINOPHILS # (AUTO) 0.1 K/uL (0.0-0.4); EOSINOPHILS % (AUTO) 1.7 % (0.0-4.0); HEMATOCRIT 26.7 % (36-54); HEMOGLOBIN 8.9 g/dL (14.0-18.0); LYMPHOCYTES # (AUTO) 0.3 K/uL (1.0-5.5); LYMPHOCYTES % (AUTO) 6.2 % (20.5-51.5); MEAN CORPUSCULAR HEMOGLOBIN 31 pg (27-31); MEAN CORPUSCULAR HGB CONC 33 % (32-36); MEAN CORPUSCULAR VOLUME 93 fL (79.0-98.0); MONOCYTES # (AUTO) 0.5 K/uL (0.0-1.0); MONOCYTES % (AUTO) 9.1 % (1.7-9.3); NEUTROPHILS # (AUTO) 4.2 K/uL (1.8-7.7); NEUTROPHILS % (AUTO) 82.9 % (40.0-70.0); PLATELET COUNT (AUTO) 88 K/uL (130-430); RED BLOOD CELL COUNT(AUTO) 2.87 MIL/uL (4.2-6.2); RED CELL DISTRIBUTION WIDTH 15.7 % (9.0-15.0); WHITE BLOOD COUNT (AUTO) 5.1 K/uL (4.8-10.8)
[2021-02-10 06:37] LABS: ANION GAP 5 (5-15); CALCIUM 7.8 mg/dL (8.4-11.0); CHLORIDE 110 mmol/L (98-107); CREATININE 0.86 mg/dL (0.55-1.30); GLUCOSE 98 mg/dL (70-99); SODIUM SERUM 141 mmol/L (136-145); UREA NITROGEN, BLOOD 17 mg/dL (8-21)
[2021-02-10] MEDS: IPRATROPIUM/ALBUTEROL SULFATE 3 ML AMPUL.NEB (DUONEB) INH SCH ×4 (07:42→23:35)
[2021-02-10] MEDS: BISACODYL 5 MG TABLET.DR (DULCOLAX) PO SCH (09:16)
[2021-02-10] MEDS: ALLOPURINOL 100 MG TABLET (ZYLOPRIM) PO SCH ×2 (09:16→21:00)
[2021-02-10] MEDS: AMIODARONE HCL 200 MG TABLET PO SCH (09:17)
[2021-02-10] MEDS ORDERED: hydrALAZINE HCL 20 MG/ML VIAL IVP PRN (11:45)
[2021-02-10] MEDS ORDERED: hydrALAZINE HCL 20 MG/ML VIAL ONE (11:46)
[2021-02-10] MEDS: lisinopriL 20 MG TABLET PO SCH (21:00)
[2021-02-10] MEDS: DILTIAZEM HCL 120 MG CAP.SR.24H PO SCH (21:00)
[2021-02-10] MEDS: FINASTERIDE 5 MG TABLET (PROSCAR) PO SCH (21:00)
[2021-02-11] VITALS (24 sets, daily range): BP systolic 102–163
[2021-02-11] MEDS: KCL 20 mEq in D5/0.45NS 1000mL 1,000 ML IV SCH ×2 (01:51→13:06)
[2021-02-11] MEDS: IPRATROPIUM/ALBUTEROL SULFATE 3 ML AMPUL.NEB (DUONEB) INH SCH ×6 (04:14→23:40)
[2021-02-11 06:19] LABS: BASOPHILS % (AUTO) 0.2 % (0.0-2.0); EOSINOPHILS # (AUTO) 0.2 K/uL (0.0-0.4); EOSINOPHILS % (AUTO) 2.2 % (0.0-4.0); HEMATOCRIT 28.1 % (36-54); HEMOGLOBIN 9.4 g/dL (14.0-18.0); LYMPHOCYTES # (AUTO) 0.3 K/uL (1.0-5.5); MEAN CORPUSCULAR HEMOGLOBIN 31 pg (27-31); MEAN CORPUSCULAR HGB CONC 33 % (32-36); MEAN CORPUSCULAR VOLUME 93 fL (79.0-98.0); MONOCYTES # (AUTO) 0.5 K/uL (0.0-1.0); MONOCYTES % (AUTO) 6.7 % (1.7-9.3); NEUTROPHILS # (AUTO) 6.3 K/uL (1.8-7.7); NEUTROPHILS % (AUTO) 86.9 % (40.0-70.0); PLATELET COUNT (AUTO) 95 K/uL (130-430); RED BLOOD CELL COUNT(AUTO) 3.04 MIL/uL (4.2-6.2); RED CELL DISTRIBUTION WIDTH 15.8 % (9.0-15.0); WHITE BLOOD COUNT (AUTO) 7.3 K/uL (4.8-10.8)
[2021-02-11 06:35] LABS: ANION GAP 7 (5-15); CALCIUM 7.7 mg/dL (8.4-11.0); CHLORIDE 108 mmol/L (98-107); CREATININE 0.81 mg/dL (0.55-1.30); GLUCOSE 109 mg/dL (70-99); POTASSIUM 3.7 mmol/L (3.5-5.1); SODIUM SERUM 139 mmol/L (136-145); UREA NITROGEN, BLOOD 16 mg/dL (8-21)
[2021-02-11] MEDS: LEVOTHYROXINE SODIUM 0.088 MG TABLET PO SCH (07:00)
[2021-02-11] MEDS: BISACODYL 5 MG TABLET.DR (DULCOLAX) PO SCH (09:00)
[2021-02-11] MEDS: ALLOPURINOL 100 MG TABLET (ZYLOPRIM) PO SCH ×2 (09:00→20:29)
[2021-02-11] MEDS: AMIODARONE HCL 200 MG TABLET PO SCH (09:00)
[2021-02-11] MEDS: ALPRAZolam 0.25 MG TABLET PO PRN (20:29)
[2021-02-11] MEDS: DIPHENHYDRAMINE HCL 12.5 MG/5 ML UDC PO PRN (20:29)
[2021-02-11] MEDS: DILTIAZEM HCL 120 MG CAP.SR.24H PO SCH (20:32)
[2021-02-11] MEDS: FINASTERIDE 5 MG TABLET (PROSCAR) PO SCH (20:32)
[2021-02-11] MEDS: lisinopriL 20 MG TABLET PO SCH (20:33)
[2021-02-11] MEDS: ACETAMINOPHEN 325 MG TABLET PO PRN (20:33)
[2021-02-12] VITALS (25 sets, daily range): BP systolic 107–166
[2021-02-12] MEDS: IPRATROPIUM/ALBUTEROL SULFATE 3 ML AMPUL.NEB (DUONEB) INH SCH ×6 (03:00→23:00)
[2021-02-12] MEDS: BISACODYL 5 MG TABLET.DR (DULCOLAX) PO SCH (07:38)
[2021-02-12] MEDS: LEVOTHYROXINE SODIUM 0.088 MG TABLET PO SCH (07:41)
[2021-02-12] MEDS: ALLOPURINOL 100 MG TABLET (ZYLOPRIM) PO SCH ×2 (08:45→20:34)
[2021-02-12] MEDS: AMIODARONE HCL 200 MG TABLET PO SCH (08:45)
[2021-02-12] MEDS: FINASTERIDE 5 MG TABLET (PROSCAR) PO SCH (20:33)
[2021-02-12] MEDS: DILTIAZEM HCL 120 MG CAP.SR.24H PO SCH (20:37)
[2021-02-12] MEDS: lisinopriL 20 MG TABLET PO SCH (20:37)
[2021-02-12] MEDS: DIPHENHYDRAMINE HCL 12.5 MG/5 ML UDC PO PRN (21:04)
[2021-02-13] VITALS (20 sets, daily range): BP systolic 119–152
[2021-02-13] MEDS: IPRATROPIUM/ALBUTEROL SULFATE 3 ML AMPUL.NEB (DUONEB) INH SCH ×6 (03:00→23:00)
[2021-02-13] MEDS: LEVOTHYROXINE SODIUM 0.088 MG TABLET PO SCH (06:18)
[2021-02-13] MEDS ORDERED: IPRATROPIUM/ALBUTEROL SULFATE 3 ML AMPUL.NEB (DUONEB) ONE (07:45)
[2021-02-13] MEDS: AMIODARONE HCL 200 MG TABLET PO SCH (08:11)
[2021-02-13] MEDS: ALLOPURINOL 100 MG TABLET (ZYLOPRIM) PO SCH ×2 (08:11→21:38)
[2021-02-13] MEDS: BISACODYL 5 MG TABLET.DR (DULCOLAX) PO SCH (08:12)
[2021-02-13 15:53] LABS: BASOPHILS % (AUTO) 0.5 % (0.0-2.0); EOSINOPHILS # (AUTO) 0.3 K/uL (0.0-0.4); EOSINOPHILS % (AUTO) 4.4 % (0.0-4.0); HEMATOCRIT 30.7 % (36-54); HEMOGLOBIN 10.2 g/dL (14.0-18.0); LYMPHOCYTES # (AUTO) 0.4 K/uL (1.0-5.5); LYMPHOCYTES % (AUTO) 6.1 % (20.5-51.5); MEAN CORPUSCULAR HEMOGLOBIN 31 pg (27-31); MEAN CORPUSCULAR HGB CONC 33 % (32-36); MEAN CORPUSCULAR VOLUME 94 fL (79.0-98.0); MONOCYTES # (AUTO) 0.6 K/uL (0.0-1.0); MONOCYTES % (AUTO) 8.6 % (1.7-9.3); NEUTROPHILS # (AUTO) 5.6 K/uL (1.8-7.7); NEUTROPHILS % (AUTO) 80.4 % (40.0-70.0); PLATELET COUNT (AUTO) 112 K/uL (130-430); RED BLOOD CELL COUNT(AUTO) 3.28 MIL/uL (4.2-6.2); RED CELL DISTRIBUTION WIDTH 15.4 % (9.0-15.0)
[2021-02-13 16:03] LABS: ANION GAP 8 (5-15); CALCIUM 7.9 mg/dL (8.4-11.0); CHLORIDE 105 mmol/L (98-107); CREATININE 0.93 mg/dL (0.55-1.30); GLUCOSE 108 mg/dL (70-99); SODIUM SERUM 138 mmol/L (136-145); UREA NITROGEN, BLOOD 22 mg/dL (8-21)
[2021-02-13] MEDS: DILTIAZEM HCL 120 MG CAP.SR.24H PO SCH (21:36)
[2021-02-13] MEDS: lisinopriL 20 MG TABLET PO SCH (21:37)
[2021-02-13] MEDS: FINASTERIDE 5 MG TABLET (PROSCAR) PO SCH (21:38)
[2021-02-13] MEDS: ALPRAZolam 0.25 MG TABLET PO PRN (22:08)
[2021-02-13] MEDS: ACETAMINOPHEN 325 MG TABLET PO PRN (22:09)
[2021-02-13] MEDS: DIPHENHYDRAMINE HCL 12.5 MG/5 ML UDC PO PRN (22:10)
[2021-02-14 02:11] VITALS: BP_SYST 141
[2021-02-14] MEDS: IPRATROPIUM/ALBUTEROL SULFATE 3 ML AMPUL.NEB (DUONEB) INH SCH ×6 (03:00→23:00)
[2021-02-14] MEDS: LEVOTHYROXINE SODIUM 0.088 MG TABLET PO SCH (06:12)
[2021-02-14 07:45] VITALS: BP_SYST 134
[2021-02-14] MEDS: BISACODYL 5 MG TABLET.DR (DULCOLAX) PO SCH (09:05)
[2021-02-14] MEDS: ALLOPURINOL 100 MG TABLET (ZYLOPRIM) PO SCH ×2 (09:05→20:24)
[2021-02-14] MEDS: AMIODARONE HCL 200 MG TABLET PO SCH (09:06)
[2021-02-14 09:29] LABS: ANION GAP 3 (5-15); CHLORIDE 106 mmol/L (98-107); CREATININE 0.77 mg/dL (0.55-1.30); GLUCOSE 88 mg/dL (70-99); POTASSIUM 3.8 mmol/L (3.5-5.1); SODIUM SERUM 137 mmol/L (136-145); UREA NITROGEN, BLOOD 21 mg/dL (8-21)
[2021-02-14 09:36] LABS: BASOPHILS % (AUTO) 0.5 % (0.0-2.0); EOSINOPHILS # (AUTO) 0.3 K/uL (0.0-0.4); EOSINOPHILS % (AUTO) 5.8 % (0.0-4.0); HEMATOCRIT 31.5 % (36-54); HEMOGLOBIN 10.5 g/dL (14.0-18.0); LYMPHOCYTES # (AUTO) 0.4 K/uL (1.0-5.5); LYMPHOCYTES % (AUTO) 7.5 % (20.5-51.5); MEAN CORPUSCULAR HEMOGLOBIN 31 pg (27-31); MEAN CORPUSCULAR HGB CONC 33 % (32-36); MEAN CORPUSCULAR VOLUME 93 fL (79.0-98.0); MONOCYTES # (AUTO) 0.5 K/uL (0.0-1.0); MONOCYTES % (AUTO) 8.9 % (1.7-9.3); NEUTROPHILS # (AUTO) 4.3 K/uL (1.8-7.7); NEUTROPHILS % (AUTO) 77.3 % (40.0-70.0); PLATELET COUNT (AUTO) 107 K/uL (130-430); RED CELL DISTRIBUTION WIDTH 15.1 % (9.0-15.0); WHITE BLOOD COUNT (AUTO) 5.5 K/uL (4.8-10.8)
[2021-02-14 10:32] LABS: ERYTHROCYTE SEDIMENTATION RATE 24 MM/HR (0-15)
[2021-02-14 11:37] VITALS: BP_SYST 152
[2021-02-14 15:59] VITALS: BP_SYST 147
[2021-02-14 20:19] VITALS: BP_SYST 163
[2021-02-14] MEDS: FINASTERIDE 5 MG TABLET (PROSCAR) PO SCH (20:24)
[2021-02-14] MEDS: DILTIAZEM HCL 120 MG CAP.SR.24H PO SCH (20:24)
[2021-02-14] MEDS: lisinopriL 20 MG TABLET PO SCH (20:27)
[2021-02-14] MEDS: ALPRAZolam 0.25 MG TABLET PO PRN (21:34)
[2021-02-14] MEDS: DIPHENHYDRAMINE HCL 12.5 MG/5 ML UDC PO PRN (21:34)
[2021-02-14] MEDS: ACETAMINOPHEN 325 MG TABLET PO PRN (21:39)
[2021-02-15] MEDS: IPRATROPIUM/ALBUTEROL SULFATE 3 ML AMPUL.NEB (DUONEB) INH SCH ×6 (03:00→23:23)
[2021-02-15 05:02] VITALS: BP_SYST 131
[2021-02-15 05:30] VITALS: BP_SYST 131
[2021-02-15 06:08] LABS: BASOPHILS % (AUTO) 0.7 % (0.0-2.0); EOSINOPHILS # (AUTO) 0.4 K/uL (0.0-0.4); EOSINOPHILS % (AUTO) 6.6 % (0.0-4.0); HEMATOCRIT 28.4 % (36-54); HEMOGLOBIN 9.4 g/dL (14.0-18.0); LYMPHOCYTES # (AUTO) 0.5 K/uL (1.0-5.5); MEAN CORPUSCULAR HEMOGLOBIN 31 pg (27-31); MEAN CORPUSCULAR HGB CONC 33 % (32-36); MEAN CORPUSCULAR VOLUME 92 fL (79.0-98.0); MONOCYTES # (AUTO) 0.6 K/uL (0.0-1.0); MONOCYTES % (AUTO) 11.2 % (1.7-9.3); NEUTROPHILS # (AUTO) 4.1 K/uL (1.8-7.7); NEUTROPHILS % (AUTO) 72.5 % (40.0-70.0); PLATELET COUNT (AUTO) 111 K/uL (130-430); RED BLOOD CELL COUNT(AUTO) 3.08 MIL/uL (4.2-6.2); RED CELL DISTRIBUTION WIDTH 15.2 % (9.0-15.0); WHITE BLOOD COUNT (AUTO) 5.7 K/uL (4.8-10.8)
[2021-02-15] MEDS: LEVOTHYROXINE SODIUM 0.088 MG TABLET PO SCH (06:20)
[2021-02-15 07:31] LABS: ALANINE AMINOTRANSFERASE 15 U/L (12-78); ALBUMIN 1.7 g/dL (3.4-4.8); ANION GAP 3 (5-15); ASPARTATE AMINOTRANSFERASE 23 U/L (10-37); C-REACTIVE PROTEIN QUANT 4.5 mg/dL (0-0.5); CALCIUM 7.5 mg/dL (8.4-11.0); CHLORIDE 104 mmol/L (98-107); CREATININE 0.89 mg/dL (0.55-1.30); GLUCOSE 87 mg/dL (70-99); POTASSIUM 3.7 mmol/L (3.5-5.1); SODIUM SERUM 134 mmol/L (136-145); TOTAL BILIRUBIN 0.4 mg/dL (0.0-1.0); UREA NITROGEN, BLOOD 25 mg/dL (8-21)
[2021-02-15 08:01] VITALS: BP_SYST 125
[2021-02-15] MEDS: BISACODYL 5 MG TABLET.DR (DULCOLAX) PO SCH (09:00)
[2021-02-15] MEDS: ALLOPURINOL 100 MG TABLET (ZYLOPRIM) PO SCH ×2 (09:51→20:53)
[2021-02-15] MEDS: AMIODARONE HCL 200 MG TABLET PO SCH (09:52)
[2021-02-15 10:34] LABS: ERYTHROCYTE SEDIMENTATION RATE 19 MM/HR (0-15)
[2021-02-15] MEDS ORDERED: DIATR MEGLU/DIATRIZ SOD 30 ML SOLUTION PO ONE (11:19)
[2021-02-15 11:28] VITALS: BP_SYST 143
[2021-02-15 15:55] VITALS: BP_SYST 136
[2021-02-15 20:00] VITALS: BP_SYST 160
[2021-02-15] MEDS: FINASTERIDE 5 MG TABLET (PROSCAR) PO SCH (20:52)
[2021-02-15] MEDS: DILTIAZEM HCL 120 MG CAP.SR.24H PO SCH (20:52)
[2021-02-15] MEDS: lisinopriL 20 MG TABLET PO SCH (20:53)
[2021-02-15] MEDS: ALPRAZolam 0.25 MG TABLET PO PRN (21:34)
[2021-02-15] MEDS: DIPHENHYDRAMINE HCL 12.5 MG/5 ML UDC PO PRN (21:34)
[2021-02-15] MEDS: ACETAMINOPHEN 325 MG TABLET PO PRN (21:34)
[2021-02-16] VITALS: BP_SYST 104
[2021-02-16] MEDS: IPRATROPIUM/ALBUTEROL SULFATE 3 ML AMPUL.NEB (DUONEB) INH SCH ×6 (03:00→23:29)
[2021-02-16] MEDS: LEVOTHYROXINE SODIUM 0.088 MG TABLET PO SCH (06:08)
[2021-02-16 08:01] VITALS: BP_SYST 127
[2021-02-16] MEDS: BISACODYL 5 MG TABLET.DR (DULCOLAX) PO SCH (09:00)
[2021-02-16] MEDS: ALLOPURINOL 100 MG TABLET (ZYLOPRIM) PO SCH ×2 (09:26→20:14)
[2021-02-16] MEDS: AMIODARONE HCL 200 MG TABLET PO SCH (09:27)
[2021-02-16 13:10] VITALS: BP_SYST 99
[2021-02-16] MEDS ORDERED: MENTHOL/ZINC OXIDE 113 GM OINT. TP PRN (14:45)
[2021-02-16] MEDS ORDERED: BALSAM PERU/CASTOR OIL 60 GM OINT...G. TP ONE (16:00)
[2021-02-16 17:21] VITALS: BP_SYST 128
[2021-02-16 20:00] VITALS: BP_SYST 113
[2021-02-16] MEDS: FINASTERIDE 5 MG TABLET (PROSCAR) PO SCH (20:14)
[2021-02-16] MEDS: DILTIAZEM HCL 120 MG CAP.SR.24H PO SCH (20:15)
[2021-02-16] MEDS: lisinopriL 20 MG TABLET PO SCH (20:15)
[2021-02-16] MEDS: DIPHENHYDRAMINE HCL 12.5 MG/5 ML UDC PO PRN (22:40)
[2021-02-16] MEDS: ACETAMINOPHEN 325 MG TABLET PO PRN (22:41)
[2021-02-17 01:12] VITALS: BP_SYST 117
[2021-02-17] MEDS: IPRATROPIUM/ALBUTEROL SULFATE 3 ML AMPUL.NEB (DUONEB) INH SCH ×5 (03:55→21:42)
[2021-02-17] MEDS: LEVOTHYROXINE SODIUM 0.088 MG TABLET PO SCH (06:25)
[2021-02-17] MEDS: BISACODYL 5 MG TABLET.DR (DULCOLAX) PO SCH (08:12)
[2021-02-17] MEDS: ALLOPURINOL 100 MG TABLET (ZYLOPRIM) PO SCH ×2 (08:12→21:24)
[2021-02-17] MEDS: AMIODARONE HCL 200 MG TABLET PO SCH (08:13)
[2021-02-17 08:30] VITALS: BP_SYST 133
[2021-02-17] MEDS ORDERED: BALSAM PERU/CASTOR OIL 60 GM OINT...G. TP SCH (09:00)
[2021-02-17 12:00] VITALS: BP_SYST 122
[2021-02-17 16:00] VITALS: BP_SYST 128
[2021-02-17 20:00] VITALS: BP_SYST 136
[2021-02-17] MEDS: FINASTERIDE 5 MG TABLET (PROSCAR) PO SCH (21:23)
[2021-02-17] MEDS: DILTIAZEM HCL 120 MG CAP.SR.24H PO SCH (21:23)
[2021-02-17] MEDS: lisinopriL 20 MG TABLET PO SCH (21:24)
[2021-02-17] MEDS: DIPHENHYDRAMINE HCL 12.5 MG/5 ML UDC PO PRN (21:29)
[2021-02-17] MEDS: ACETAMINOPHEN 325 MG TABLET PO PRN (21:30)
[2021-02-18] VITALS: BP_SYST 127
[2021-02-18] MEDS: IPRATROPIUM/ALBUTEROL SULFATE 3 ML AMPUL.NEB (DUONEB) INH SCH ×4 (00:28→15:51)
[2021-02-18] MEDS: LEVOTHYROXINE SODIUM 0.088 MG TABLET PO SCH (06:07)
[2021-02-18 06:37] LABS: ALANINE AMINOTRANSFERASE 15 U/L (12-78); ANION GAP 5 (5-15); ASPARTATE AMINOTRANSFERASE 18 U/L (10-37); CALCIUM 7.9 mg/dL (8.4-11.0); CHLORIDE 104 mmol/L (98-107); CREATININE 0.79 mg/dL (0.55-1.30); GLUCOSE 83 mg/dL (70-99); SODIUM SERUM 137 mmol/L (136-145); TOTAL BILIRUBIN 0.7 mg/dL (0.0-1.0); UREA NITROGEN, BLOOD 19 mg/dL (8-21)
[2021-02-18 06:45] LABS: BASOPHILS % (AUTO) 0.8 % (0.0-2.0); EOSINOPHILS # (AUTO) 0.3 K/uL (0.0-0.4); EOSINOPHILS % (AUTO) 5.7 % (0.0-4.0); HEMATOCRIT 25.8 % (36-54); HEMOGLOBIN 8.8 g/dL (14.0-18.0); LYMPHOCYTES # (AUTO) 0.5 K/uL (1.0-5.5); LYMPHOCYTES % (AUTO) 8.2 % (20.5-51.5); MEAN CORPUSCULAR HEMOGLOBIN 31 pg (27-31); MEAN CORPUSCULAR HGB CONC 34 % (32-36); MEAN CORPUSCULAR VOLUME 91 fL (79.0-98.0); MONOCYTES # (AUTO) 0.7 K/uL (0.0-1.0); MONOCYTES % (AUTO) 12.7 % (1.7-9.3); NEUTROPHILS # (AUTO) 4.2 K/uL (1.8-7.7); NEUTROPHILS % (AUTO) 72.6 % (40.0-70.0); PLATELET COUNT (AUTO) 123 K/uL (130-430); RED BLOOD CELL COUNT(AUTO) 2.82 MIL/uL (4.2-6.2); RED CELL DISTRIBUTION WIDTH 15.4 % (9.0-15.0); WHITE BLOOD COUNT (AUTO) 5.7 K/uL (4.8-10.8)
[2021-02-18] MEDS: AMIODARONE HCL 200 MG TABLET PO SCH (07:57)
[2021-02-18] MEDS: BISACODYL 5 MG TABLET.DR (DULCOLAX) PO SCH (07:57)
[2021-02-18] MEDS: ALLOPURINOL 100 MG TABLET (ZYLOPRIM) PO SCH (07:57)
[2021-02-18 09:00] VITALS: BP_SYST 130
[2021-02-18 12:11] VITALS: BP_SYST 140
[2021-02-18 14:09] VITALS: BP_SYST 130
[2021-02-18 16:17] VITALS: BP_SYST 133
[2021-02-18 16:44] VITALS: BP_SYST 140
== END 2021-02-18 19:40 | disposition home health service (06) | DRG 163 ==
LOC: STU 22:03 → SIC 02-08 13:57 → STU 02-13 19:08 → SMU 02-17 10:41
PROVIDERS: ADMIT Internal Medicine Critical Care Medicine; ATTEND Internal Medicine Hospice and Palliative Medicine
PROC: 0B9F3ZX Drainage of Right Lower Lung Lobe, Percutaneous Approach, Diagnostic (ICD-10-PCS; 2021-02-02)
PROC: 0B9C3ZX Drainage of Right Upper Lung Lobe, Percutaneous Approach, Diagnostic (ICD-10-PCS; 2021-02-02)
PROC: 3E0T3BZ Introduction of Anesthetic Agent into Peripheral Nerves and Plexi, Percutaneous Approach (ICD-10-PCS; 2021-02-08)
PROC: 0JPT3XZ Removal of Tunneled Vascular Access Device from Trunk Subcutaneous Tissue and Fascia, Percutaneous Approach (ICD-10-PCS; 2021-02-08)
PROC: 0W9900Z Drainage of Right Pleural Cavity with Drainage Device, Open Approach (ICD-10-PCS; 2021-02-08)
PROC: 02HV33Z Insertion of Infusion Device into Superior Vena Cava, Percutaneous Approach (ICD-10-PCS; 2021-02-08)
PROC: 0BQ Respiratory System, Repair (ICD-10-PCS; principal; 2021-02-08 09:13)
PROC: 0BH17EZ Insertion of Endotracheal Airway into Trachea, Via Natural or Artificial Opening (ICD-10-PCS; 2021-02-09)
PROC: 5A1935Z Respiratory Ventilation, Less than 24 Consecutive Hours (ICD-10-PCS; 2021-02-09)
DX: J93.9 Pneumothorax, unspecified (principal); J96.01 Acute respiratory failure with hypoxia; J18.9 Pneumonia, unspecified organism; I48.20 Chronic atrial fibrillation, unspecified; J94.8 Other specified pleural conditions; N13.30 Unspecified hydronephrosis; C34.90 Malignant neoplasm of unspecified part of unspecified bronchus or lung; C74.00 Malignant neoplasm of cortex of unspecified adrenal gland; J90 Pleural effusion, not elsewhere classified; Z96.651 Presence of right artificial knee joint; N40.0 Benign prostatic hyperplasia without lower urinary tract symptoms; D69.6 Thrombocytopenia, unspecified; D46.9 Myelodysplastic syndrome, unspecified; E03.9 Hypothyroidism, unspecified; E83.52 Hypercalcemia; I10 Essential (primary) hypertension; Z20.822 Contact with and (suspected) exposure to COVID-19; Z87.442 Personal history of urinary calculi; Z79.82 Long term (current) use of aspirin; Z79.899 Other long term (current) drug therapy; Z79.1 Long term (current) use of non-steroidal anti-inflammatories (NSAID)
CPT/HCPCS: 36415; 36600; 71045; 71250-TC; 71260-TC; 76376; 76770; 77012; 78306; 80048; 80053; 81003; 82105; 82607; 82728; 82746; 82803-TC; 83540; 83550; 85025; 85610-TC; 85651-TC; 85730-TC; 86140; 86886; 86900; 86901; 86920; 87070-TC; 87075-TC; 87081; 87101; 87116; 87205-TC; 88108; 88305; 88309; 88341; 88342; 92523; 92610-GN; 93005; 93306; 94002; 94003; 94640; 94760; 97110-GP; 97112-GP; 97116-GP; 97530-GP; A9503; G0378; J0330; J0360; J0690; J1100; J1170; J1200; J1940; J1956; J2001; J2210; J2704; J3010; J3490; J7030; Q9964; Q9967